=== PATIENT | female | born 1940 | race African-American/Black ===

== ENCOUNTER 2024-06-15 17:25 | Emergency (ER) | payer OTHER ==
[~2024-06-15] VITALS: Ht 160 cm; Wt 50.0 kg
[2024-06-15 17:27] VITALS: O2SAT 100
[2024-06-15 18:39] LABS: BASOPHILS % 0.1 % (0.0-2.0); EOSINOPHILS % 1.2 % (0.0-5.0); HEMATOCRIT. 36.9 % (36.0-48.0); HEMOGLOBIN. 11.7 g/dL (12.0-16.0); LYMPHOCYTES % 15.5 % (20.0-50.0); MEAN CORPUSCULAR HEMOGLOBIN 28.6 pg (28.0-32.0); MEAN CORPUSCULAR HGB CONC 31.7 g/dL (31.0-37.0); MEAN CORPUSCULAR VOLUME 90.1 fL (81.0-99.0); MONOCYTES % 7.7 % (2.0-8.0); NEUTROPHILS % 75.5 % (40.0-76.0); PLATELET 545 x1000/uL (130-400); RED CELL DISTRIBUTION WIDTH 23.1 % (11.6-14.6); WHITE BLOOD COUNT 8.3 x1000/uL (4.5-11.0)
[2024-06-15 18:40] LABS: ADD RBC MORPHOLOGY YES; DIFFERENTIAL COMMENT 1
[2024-06-15 18:47] LABS: CHLORIDE 105 mEq/L (98-107); POTASSIUM 4.4 mEq/L (3.5-5.1); SODIUM 139 mEq/L (136-145)
[2024-06-15 18:48] LABS: CALCIUM 10.7 mg/dL (8.7-10.4); CARBON DIOXIDE 30 mEq/L (21-32)
[2024-06-15 18:53] LABS: CREATININE 0.5 mg/dL (0.6-1.0); GLUCOSE 94 mg/dL (70-105); UREA NITROGEN BLOOD 9 mg/dL (9-23)
[2024-06-15 18:54] LABS: TROPONIN I HIGH SENSITIVITY 5 ng/L (3.0-34)
[2024-06-15 19:09] LABS: ANISOCYTOSIS 2+; PLATELET ESTIMATE INCREASED
[2024-06-15 22:00] VITALS: BP 149/77; PULSE 80; RESP 16; TEMP 36.89184; O2SAT 98
== END 2024-06-15 22:07 | disposition short-term general hospital (02) ==
LOC: ER 17:25
DX: I24.9 Acute ischemic heart disease, unspecified (principal); N63.10 Unspecified lump in the right breast, unspecified quadrant; Z85.3 Personal history of malignant neoplasm of breast
CPT/HCPCS: 36415; 71045; 80048; 83880; 84484; 85025; 93005; 99285